=== PATIENT | female | born 1965 | race African-American/Black ===

== ENCOUNTER 2016-07-29 21:27 | Emergency (ER) | payer MEDICAID ==
[2014-08-05 06:02] VITALS: BMI 39.1
[~2016-07-29 21:27] MED LIST: BIOTIN5 MG PO; CARTIA XT240 MG PO; CRANBERRY475 MG PO; CRESTOR20 MG PO; CYCLOBENZAPRINE10 MG PO; DULERA 100 MCG8.8 GM INH; DYAZIDE 37.5/251 CAP PO; HYDROCODONE-APA1 TAB PO; IPRAT-ALBUT 0.5-3 ML UPD; PRILOSEC20 MG PO; PROMETHAZINE V120 M1 PO; SINGULAIR10 MG PO; ULTRACET TABLET1 TAB PO; VENTOLIN HFA18 GM INH; VITAMIN B-121000 MCG PO; VITAMIN D5000 UNIT PO
[2016-07-30 03:05] LABS: BASOPHILS 0.2 % (0.0-2.0); EOSINOPHILS 1.1 % (0-7); HEMOGLOBIN 14.6 g/dL (12-16); IMMATURE GRANULOCYTES 0.6 % (0-5); MCH 30.9 pg (26.0-34.0); MCV 90.9 fL (80.0-100.0); MEAN PLATELET VOLUME 9.3 fL (7.4-10.4); MONOCYTES 2.2 % (2-11); NEUTROPHILS 87.9 % (40-80); RBC 4.73 10x6/uL (4.00-5.40); WBC 13.7 10x3/uL (4.8-10.8)
[2016-07-30 03:06] LABS: PLATELET COUNT 373 10x3/uL (130-400)
[2016-07-30 03:27] LABS: CALC OSMOLALITY 275 mosm/kg (275-300); CALCIUM 9.6 mg/dL (8.5-10.1); CARBON DIOXIDE 24.8 mmol/L (21.0-32.0); CHLORIDE - SERUM 102 mmol/L (98-107); CREATININE - SERUM 0.8 mg/dL (0.6-1.3); PRO BNP 15 pg/mL (0-125); SODIUM 136 mmol/L (136-145); UREA NITROGEN 10 mg/dL (7-18); eGFR NON AFRICAN AMERICAN 80 mL/min (90-120)
[2016-07-30 03:38] LABS: GLUCOSE 184 mg/dL (74-106)
== END 2016-07-30 04:59 | disposition home or self-care (01) ==
LOC: D.ER 21:27
PROVIDERS: Family Medicine
DX: J18.9 Pneumonia, unspecified organism (principal); J45.909 Unspecified asthma, uncomplicated; R73.03 Prediabetes; I25.10 Atherosclerotic heart disease of native coronary artery without angina pectoris; I10 Essential (primary) hypertension; F17.200 Nicotine dependence, unspecified, uncomplicated

== ENCOUNTER → 2016-09-21 13:24 | Outpatient (CLI) | payer MEDICAID ==
[2014-08-05 06:02] VITALS: BMI 39.1
== END | disposition home or self-care (01) ==
LOC: D.CT 13:24
DX: R04.2 Hemoptysis (principal)

== ENCOUNTER → 2016-11-25 12:36 | Outpatient (CLI) | payer MEDICAID ==
[2014-08-05 06:02] VITALS: BMI 39.1
== END | disposition home or self-care (01) ==
LOC: D.US 12:36
DX: R22.41 Localized swelling, mass and lump, right lower limb (principal)

== ENCOUNTER → 2016-12-27 10:06 | Outpatient (CLI) | payer MEDICAID ==
[~2016-12-27] VITALS: Ht 152.4 cm; Wt 106.1 kg
[2016-12-27 12:31] VITALS: Ht 152.4 cm; Wt 106.1 kg
== END | disposition home or self-care (01) ==
LOC: D.FANS 11-30 10:30
DX: E11.9 Type 2 diabetes mellitus without complications (principal); I10 Essential (primary) hypertension; J44.9 Chronic obstructive pulmonary disease, unspecified

== ENCOUNTER 2017-03-18 10:16 | Inpatient (IN) | payer MEDICAID ==
[~2017-03-18] VITALS: Ht 152.4 cm; Wt 110.7 kg
[2017-03-18 11:26] LABS: BASOPHILS 0.2 % (0-2); EOSINOPHILS 3.3 % (0-7); HEMATOCRIT 44.5 % (36.0-48.0); HEMOGLOBIN 14.8 g/dL (12-16); IMMATURE GRANULOCYTES 0.6 % (0-5); LYMPHOCYTES 14.6 % (15-50); MCH 30.9 pg (26.0-34.0); MCHC 33.3 g/dL (31.0-37.0); MCV 92.9 fL (80.0-100.0); MONOCYTES 8.5 % (2-11); NEUTROPHILS 72.8 % (40-80); PLATELET COUNT 296 10x3/uL (130-400); RBC 4.79 10x6/uL (4.00-5.40); RDW 13.9 % (11.5-14.5); WBC 18.4 10x3/uL (4.8-10.8)
[2017-03-18 11:38] LABS: ALBUMIN 3.9 g/dL (3.4-5.0); ALKALINE PHOSPHATASE 103 U/L (46-116); ALT (SGPT) 48 U/L (10-68); CALC OSMOLALITY 278 mosm/kg (275-300); CALCIUM 9.6 mg/dL (8.5-10.1); CARBON DIOXIDE 27.1 mmol/L (21.0-32.0); CHLORIDE - SERUM 103 mmol/L (98-107); CREATININE - SERUM 0.9 mg/dL (0.6-1.3); POTASSIUM - SERUM 3.7 mmol/L (3.5-5.1); PROTEIN - SERUM 8.1 g/dL (6.4-8.2); SODIUM 140 mmol/L (136-145); UREA NITROGEN 10 mg/dL (7-18); eGFR NON AFRICAN AMERICAN 70 mL/min (90-120)
[2017-03-18 11:42] LABS: GLUCOSE 121 mg/dL (74-106)
[2017-03-18 11:48] LABS: PRO BNP 6 pg/mL (0-125); TROPONIN-I < 0.017 ng/mL (0.000-0.060)
[2017-03-18] MEDS ORDERED: CARTIA XT300 MG PO (17:22)
[2017-03-18] MEDS ORDERED: FEXOFENADINE H180 MG PO (17:30)
[2017-03-18] MEDS ORDERED: ADVAIR 500/501 DISK INH (17:30)
--- NOTE | 2017-03-18 17:30 | NUR ---
PT RECEIVED TO ROOM FROM ER. PT IS SHORT OF BREATH, O2 SAT IS 92. ONCE PT SAT IN BED, RR WERE EVEN AND UNLABORED. PT REPORTS PAIN IN CHEST AND BACK FROM COUGHING. FAMILY AT BEDSIDE, PT ORIENTED TO ROOM. ASSESSMENT, HX, AND MED REC COMPLETED. BP IS ELEVATED, HX OF HTN REPORTED. PTS HR IS 121, REGULAR. DENIES FURTHER NEEDS AT THIS TIME, CURRENTLY EATING DINNER. WILL CTM.
[2017-03-18] MEDS ORDERED: BENZONATATE200 MG PO (17:31)
[2017-03-18] MEDS ORDERED: NEURONTIN 300300 MG PO (17:32)
[2017-03-18] MEDS ORDERED: IPRAT-ALBUT 0.5-3 ML UPD (17:34)
[2017-03-18] MEDS ORDERED: ZESTORETIC 20/21 TAB PO (17:34)
[2017-03-18] MEDS ORDERED: METFORMIN HCL500 M1 PO (17:35)
[2017-03-18] MEDS ORDERED: ANAPROX DS550 MG PO (17:37)
[2017-03-18] MEDS ORDERED: PROAIR HFA8.5 GM INH (17:38)
[2017-03-18] MEDS ORDERED: VOLTAREN100 GM TOPICAL (17:41)
[2017-03-18] MEDS ORDERED: PULMICORT0.5 MG/21 INH (17:45)
[2017-03-18 17:46] VITALS: BP 150/103; BMI 44.6
--- NOTE | 2017-03-18 18:35 | NUR ---
PT RESTING QUILETY, RESPIRATIONS ARE EVEN AND UNLABORED, PT IS STILL MILDLY SHORT OF BREATH. WILL GIVE REPORT ON PT CONDTION FOR THE DAY.
[2017-03-18 20:00] VITALS: BP 154/99
--- NOTE | 2017-03-18 22:04 | NUR ---
PT COMPLAINS OF LOWER BACK PAIN AND REQUESTING NAPROXYN OR FLEXERIL. NOTIFIED DR. Genevieve MENDEZ WITH NEW ORDERS TO RESTART NAPROXYN, FLEXERIL AND NORCO. ALSO. DIAMANTE DE JESUS D/T FREQUENT PRODUCTIVE COUGH.
[2017-03-19] VITALS (7 sets, daily range): BP systolic 123–160; BP diastolic 71–99
--- NOTE | 2017-03-19 03:27 | NUR ---
RECIEVED UP IN BED WITH TV ON AND FAMILY AT BEDSIDE. ALERT AND ORIENTED X4. DENIES ANY PAIN AT THIS TIME. CALL LIGHT AND OVERBED TABLE IN REACH.
[2017-03-19 05:26] LABS: BASOPHILS 0.1 % (0-2); EOSINOPHILS 0 % (0-7); HEMATOCRIT 45.7 % (36.0-48.0); HEMOGLOBIN 15.3 g/dL (12-16); IMMATURE GRANULOCYTES 0.5 % (0-5); LYMPHOCYTES 6.3 % (15-50); MCHC 33.5 g/dL (31.0-37.0); MCV 92.5 fL (80.0-100.0); MEAN PLATELET VOLUME 9.7 fL (7.4-10.4); MONOCYTES 3.3 % (2-11); NEUTROPHILS 89.8 % (40-80); PLATELET COUNT 386 10x3/uL (130-400); RBC 4.94 10x6/uL (4.00-5.40); RDW 14.2 % (11.5-14.5); WBC 27.1 10x3/uL (4.8-10.8)
[2017-03-19 05:38] LABS: ANION GAP 14.7 mmol/L (8-16); CALCIUM 10.4 mg/dL (8.5-10.1); CARBON DIOXIDE 28.4 mmol/L (21.0-32.0); POTASSIUM - SERUM 4.1 mmol/L (3.5-5.1)
--- NOTE | 2017-03-19 07:28 | NUR ---
AM ROUNDING- RECEIVED REPORT FROM NIGHT SHIT NURSE BEBETO. PT IS CURRENTLY SITTING UP IN BED WITH EYES OPEN RESTING. GUEST IS AT BEDSIDE. ON 02 AT 2L VIA NC. ON MONITOR SHOWING SR, HR 100. IV SEEN TO LEFT HAND THAT IS CURRENTLY SALINE LOCKED. NO NEED AT THIS TIME. WILL CONTINUE TO MONITOR AND CONTINUE WITH PLAN OF CARE.
--- NOTE | 2017-03-19 09:09 | NUR ---
PT TO XRAY VIA WHEELCHAIR.
--- NOTE | 2017-03-19 16:34 | NUR ---
PT IS SITTING UP IN BED EATING MCDONALDS. FAMILY MEMBERS ARE AT BEDSIDE. DR. GOODRICH IS IN ROOM NOW. NO NEED AT THIS TIME. WILL CONTINUE TO MONITOR.
--- NOTE | 2017-03-19 17:50 | NUR ---
PT IS CURRENTLY SITTING UP IN BED WITH EYES OPEN RESTING. PT DENIES ANY NEED AT THIS CURRENT TIME. WILL CONTINUE TO MONITOR.
[2017-03-20 03:41] VITALS: BP 117/77
[2017-03-20 05:12] LABS: HEMATOCRIT 41.7 % (36.0-48.0); HEMOGLOBIN 13.6 g/dL (12-16); MCH 30.9 pg (26.0-34.0); MCHC 32.6 g/dL (31.0-37.0); MCV 94.8 fL (80.0-100.0); MEAN PLATELET VOLUME 9.7 fL (7.4-10.4); PLATELET COUNT 326 10x3/uL (130-400); RDW 14.7 % (11.5-14.5); WBC 27.7 10x3/uL (4.8-10.8)
[2017-03-20 05:18] LABS: ANION GAP 14.5 mmol/L (8-16); CALCIUM 9.6 mg/dL (8.5-10.1); CARBON DIOXIDE 25.7 mmol/L (21.0-32.0); POTASSIUM - SERUM 4.2 mmol/L (3.5-5.1)
--- NOTE | 2017-03-20 07:20 | NUR ---
MORNING ROUNDS MADE. PATIENT RESTING IN BED WITH NO REQUESTS AT THIS TIME. CPOC.
[2017-03-20 07:47] LABS: ANISOCYTOSIS OCC; HYPOCHROMASIA OCC; LYMPHOCYTES 11 % (15-50); MONOCYTES 11 % (2-11); NEUTROPHILS 74 % (40-80); PLATELET ESTIMATE NORMAL
[2017-03-20 08:09] VITALS: BP 122/78
--- NOTE | 2017-03-20 08:35 | NUR ---
PATIENT SITTING UP IN BED. MORNING MEDS GIVEN WITHOUT PROBLEMS. PATIENT ASKED ABOUT HER GABAPENTIN. ADVISED I WILL CALL DR. MENDEZ AND SEE ABOUT GETTING THAT STARTED. PATIENT VOICED UNDERSTANDING. C/O THE O2 DRYING OUT HER NOSE AND THROAT. ADDED NS TO WALL O2. CPOC.
--- NOTE | 2017-03-20 09:45 | NUR ---
PATIENT ASKED IF SHE COULD HAVE HER GABAPENTIN. SPOKE WITH NICK AT DR. MENDEZ'S OFFICE AND SHE STATED SHE WILL RUN IT BY DR. MENDEZ AND CALL ME BACK.
--- NOTE | 2017-03-20 10:15 | NUR ---
NICK FROM DR. MENDEZ'S OFFICE CALLED BACK, STATES TO CONTINUE GABAPENTIN 300MG TID. WILL START NOW.
[2017-03-20 11:46] VITALS: BP 124/76
--- NOTE | 2017-03-20 11:48 | NUR ---
PATIENT RESTING IN BED. NO REQUESTS AT THIS TIME. CPOC.
--- NOTE | 2017-03-20 13:23 | NUR ---
PATIENT LAYING IN BED WITH EYES CLOSED, CHEST RISES AND FALLS EQUALLY BILAT. NAD AT THIS TIME. WILL CONTINUE TO MONITOR. CPOC.
[2017-03-20 13:46] VITALS: Ht 152.4 cm; Wt 110.7 kg
--- NOTE | 2017-03-20 14:59 | NUR ---
PATIENT SITTING UP IN BED WITH FRIEND AT BEDSIDE. MEDS GIVEN. NO REQUESTS AT THIS TIME. CPOC.
--- NOTE | 2017-03-20 15:43 | NUR ---
PATIENT RESTING IN BED, DENIES ANY NEEDS AT THIS TIME. CPOC
[2017-03-20 16:51] VITALS: BP 106/63
--- NOTE | 2017-03-20 17:06 | NUR ---
PATIENT SITTING IN BED. NO REQUESTS AT THIS TIME. CPOC.
--- NOTE | 2017-03-20 18:07 | NUR ---
PATIENT SITTING IN BED WITH FAMILY AT BEDSIDE. URINE SAMPLE GIVEN. NO REQUESTS AT THIS TIME. CPOC.
--- NOTE | 2017-03-20 18:30 | NUR ---
END OF SHIFT ROUNDS MADE. ADVISED PATIENT I WILL BE LEAVING SOON. DENIES ANY NEEDS AT THIS TIME. SHE IS SITTING IN THE CHAIR AT BEDSIDE WITH HER FAMILY IN THE ROOM. CPOC.
[2017-03-20 20:30] VITALS: BP 119/69
[2017-03-20 23:50] VITALS: BP 107/73
--- NOTE | 2017-03-21 00:15 | NUR ---
ROUNDING ON PT'S MADE. NO NEEDS VOICED. DENIES ANY CURRENT C/O PAIN. CERTIFIED GENETIC COUNSELOR IN ROOM TO DO VS. CALL LIGHT WITHIN REACH. NURSE STATES NO CHANGES NOTED SINCE INITIAL ASSESSMENTS. WILL CONT TO MONITOR.
--- NOTE | 2017-03-21 04:36 | NUR ---
PATIENT NEEDS A RESPIRATORY CULTURE, UNABLE TO OBTAIN DUE TO NON PRODUCTIVE COUGH. WILL PASS TO NEXT SHIFT TO SEE IF THEY ARE ABLE TO OBTAIN.
[2017-03-21 05:10] VITALS: BP 115/70
[2017-03-21 05:32] LABS: BASOPHILS 0.1 % (0-2); EOSINOPHILS 0 % (0-7); HEMATOCRIT 41.5 % (36.0-48.0); HEMOGLOBIN 13.6 g/dL (12-16); IMMATURE GRANULOCYTES 2.1 % (0-5); LYMPHOCYTES 8.8 % (15-50); MCH 30.7 pg (26.0-34.0); MCHC 32.8 g/dL (31.0-37.0); MCV 93.7 fL (80.0-100.0); MEAN PLATELET VOLUME 9.7 fL (7.4-10.4); MONOCYTES 5.4 % (2-11); NEUTROPHILS 83.6 % (40-80); PLATELET COUNT 333 10x3/uL (130-400); RBC 4.43 10x6/uL (4.00-5.40); RDW 14.5 % (11.5-14.5); WBC 21.7 10x3/uL (4.8-10.8)
[2017-03-21 05:39] LABS: ANION GAP 15.2 mmol/L (8-16); CALCIUM 9.9 mg/dL (8.5-10.1); CARBON DIOXIDE 25.8 mmol/L (21.0-32.0); CREATININE - SERUM 1.1 mg/dL (0.6-1.3)
--- NOTE | 2017-03-21 07:42 | NUR ---
AM ROUNDS - PT IS AWAKE AND IN THE BED AT THIS TIME. PER CERAMIC TILER, MONITOR SHOWING SR, HR 99. PT IS UP AD HANNY. O2 AT 2.5L VIA NC. IV TO LEFT HAND, SL. A&O. BED AT LOWEST POSITION. CALL INMAN IN USE/REACH. SIDE RAILS UP X2. WILL CONTINEU TO MONITOR
[2017-03-21 08:11] VITALS: BP 123/73
[2017-03-21 10:19] LABS: ANA REFLEX - DIRECT Negative (Negative); IMMUNOGLOBULIN A 203 mg/dL (87-352); IMMUNOGLOBULIN G 1223 mg/dL (700-1600)
[2017-03-21 11:19] LABS: IMMUNOGLOBULIN E 187 IU/mL (0-100)
[2017-03-21 11:57] VITALS: BP 110/66
--- NOTE | 2017-03-21 12:55 | NUR ---
Patient Name: PRATIK Temple Admission Status: ER Accout number: [id number] Admission Date: 03-18-2017 : 1965 Admission Diagnosis: Attending: Dmitriy Mendez Current LOS: 3 Anticipated DC Date: Planned Disposition: Home Primary Insurance: [place] [employer]IONS ELIAN[place] Discharge Planning Comments: * Is the patient Alert and Oriented? Yes 0 * How many steps to enter\exit or inside your home? NONE 0 * PCP DR. MENDEZ 0 * Pharmacy [facility] * Preadmission Environment Home with Family 0 * ADLs Independent 0 * Equipment CPAP Glucometer Nebulizer 0 * Other Equipment [facility] - MEDICAL EQUIPMENT PROVIDER 0 * List name and contact numbers for known caregivers / representatives who currently or will assist patient after discharge: LIZ , DTR, 0 * Community resources currently utilized None 0 * Please name any agencies selected above. NONE 0 * Additional services required to return to the preadmission environment? No 0 * Can the patient safely return to the preadmission environment? Yes 0 * Has this patient been hospitalized within the prior 30 days at any hospital? No 0 CM MET WITH PT IN ROOM TO DISCUSS DISCHARGE PLANNING AND NEEDS. PT REPORTS LIVING AT HOME INDEPENDENTLY; PT'S ADULT DAUGHTER LIVES IN THE HOME. PT HAS CPAP, GLUCOMETER AND NEBULIZER FROM [facility]. PT HAS NO OUTSIDE SERVICES ASSISTING IN THE HOME. CM DISCUSSED AVAILABILITY OF HOME HEALTH, REHAB SERVICES AND MEDICAL EQUIPMENT. PT DENIES DISCHARGE NEEDS AT THIS TIME, REPORTS HER DAUGHTER WILL PICK HER UP FOR DISCHARGE HOME. PT PLANS TO DISCHARGE HOME WITH DAUGHTER, DENIES DISCHARGE NEEDS AT THIS TIME. CM TO FOLLOW AND ASSIST IF NEEDED. Garage Supervisor: Sunny Booth
[2017-03-21 16:13] VITALS: BP 110/59
--- NOTE | 2017-03-21 17:25 | NUR ---
PT IN BED WITH NO NEEDS AT THIS TIME. WILL CONTINUE TO MONITOR
--- NOTE | 2017-03-21 20:19 | NUR ---
PT SITTING ON SIDE OF BED. DAUGHTER AT BEDSIDE. DENIES NEEDS AT THIS TIME.
[2017-03-21 20:55] VITALS: BP 135/69
[2017-03-22 00:45] VITALS: BP 108/63
--- NOTE | 2017-03-22 04:44 | NUR ---
RESTING IN BED WITH EYES CLOSED AT THIS TIME. NO S/S OF DISTRESS OBSERVED. O2 @ 2.5 LITERS PER N/C. IV TO LEFT HAND SALINE LOCKED. DRESSING CLEAN, DRY AND INTACT. CALL LIGHT AND OVERBED TABLE IN RECH.
[2017-03-22 04:55] LABS: BASOPHILS 0 % (0-2); EOSINOPHILS 0 % (0-7); HEMATOCRIT 41.5 % (36.0-48.0); HEMOGLOBIN 13.5 g/dL (12-16); IMMATURE GRANULOCYTES 2.7 % (0-5); MCH 30.5 pg (26.0-34.0); MCHC 32.5 g/dL (31.0-37.0); MCV 93.9 fL (80.0-100.0); MEAN PLATELET VOLUME 9.3 fL (7.4-10.4); MONOCYTES 5.8 % (2-11); NEUTROPHILS 80.5 % (40-80); PLATELET COUNT 394 10x3/uL (130-400); RBC 4.42 10x6/uL (4.00-5.40); RDW 14.4 % (11.5-14.5)
[2017-03-22 05:07] LABS: ANION GAP 12.3 mmol/L (8-16); CALCIUM 9.6 mg/dL (8.5-10.1); CARBON DIOXIDE 27.9 mmol/L (21.0-32.0); CREATININE - SERUM 1.2 mg/dL (0.6-1.3); POTASSIUM - SERUM 4.2 mmol/L (3.5-5.1)
[2017-03-22 06:12] VITALS: BP 116/80
[2017-03-22 06:14] LABS: ANGIOTENSIN CONVERTING ENZYME < 15 U/L (14-82)
[2017-03-22 07:47] VITALS: BP 133/78
--- NOTE | 2017-03-22 08:32 | NUR ---
AM ROUNDS - PT IS SITTING ON THE SIDE OF THE BED AT THIS TIME. MONITOR SHOWING SR, HR 95. IV TO LEFT HAND, SL. PT IS A&O. O2 AT 2.5L VIA NC. PT IS UP AD HANNY. BED AT LOWEST POSITION. CALL INMAN IN USE/REACH. SIDE RAILS UP X2. NO NEEDS AT THIS TIME. WILL CONTINUE TO MONITOR
[2017-03-22 11:48] VITALS: BP 151/67
[2017-03-22 16:09] VITALS: BP 122/66
[2017-03-22 16:14] LABS: ANCA - ANTIMYELOPEROXIDASE <9.0 U/mL (0.0-9.0); ANCA - ANTIPROTEINASE 3 <3.5 U/mL (0.0-3.5); ANCA - ATYPICAL <1:20 titer (Neg:<1:20); ANCA - CYTOPLASMIC <1:20 titer (Neg:<1:20); ANCA - PERINUCLEAR <1:20 titer (Neg:<1:20)
--- NOTE | 2017-03-22 16:29 | NUR ---
VANCOMYCIN TROUGH = 8.3 INCREASED DOSE TO 1.25 GRAM Q12H
--- NOTE | 2017-03-22 18:25 | NUR ---
PT IN BED WITH NO NEEDS AT THIS TIME. WILL CONTINUE TO MONITOR
[2017-03-22 21:08] LABS: CYCLIC CITRULL PEPTIDE IGG/IGA 3 units (0-19)
[2017-03-22 21:12] VITALS: BP 114/63
[2017-03-23 00:52] VITALS: BP 92/53
[2017-03-23 03:11] LABS: MYCOPLASMA PNEUMO IGG 122 U/mL (0-99)
[2017-03-23 04:31] LABS: BASOPHILS 0.2 % (0-2); EOSINOPHILS 0 % (0-7); HEMATOCRIT 40.4 % (36.0-48.0); HEMOGLOBIN 13.4 g/dL (12-16); IMMATURE GRANULOCYTES 4.9 % (0-5); LYMPHOCYTES 10.4 % (15-50); MCH 30.9 pg (26.0-34.0); MCHC 33.2 g/dL (31.0-37.0); MCV 93.3 fL (80.0-100.0); MEAN PLATELET VOLUME 8.9 fL (7.4-10.4); MONOCYTES 5.6 % (2-11); NEUTROPHILS 78.9 % (40-80); PLATELET COUNT 373 10x3/uL (130-400); RBC 4.33 10x6/uL (4.00-5.40); RDW 14.2 % (11.5-14.5)
--- NOTE | 2017-03-23 05:03 | NUR ---
PATIENT UNABLE TO PRODUCE ENOUGH SPUTUM TO COLLECT RESPIRATORY CULTURE.
--- NOTE | 2017-03-23 05:23 | NUR ---
ELDER COUNSELOR AT BEDSIDE TO OBTAIN VITALS, CALL LIGHT IN REACH. WILL CONTINUE WITH PLAN OF CARE.
[2017-03-23 05:28] LABS: ANION GAP 14.5 mmol/L (8-16); CALCIUM 9.1 mg/dL (8.5-10.1); CARBON DIOXIDE 24.9 mmol/L (21.0-32.0); CREATININE - SERUM 1.2 mg/dL (0.6-1.3); POTASSIUM - SERUM 4.4 mmol/L (3.5-5.1)
[2017-03-23 05:53] VITALS: BP 120/75
--- NOTE | 2017-03-23 07:30 | NUR ---
REPORT RECEIVED. PT RESTING QUIETLY, RR EVEN AND UNLABORED. PT IS ALERT AND ORIENTED X4. DENIES NEEDS AT THIS TIME. WILL CTM.
[2017-03-23 08:00] VITALS: BP 126/76
[2017-03-23 13:20] VITALS: BP 136/76
--- NOTE | 2017-03-23 16:00 | NUR ---
PT REPORTS NOT HAVING BM SINCE MONDAY. PT HAS PRN MEDICAITON ORDERED FOR 0600. EXPLAINED TO PT THAT IT WAS FOR THE MORNING AND I WILL TELL COMMISSION ASSOCIATE IN REPORT TO GIVE THE MEDICATION TO HER TOMORROW MORNING.
[2017-03-23 16:47] VITALS: BP 118/67
--- NOTE | 2017-03-23 18:30 | NUR ---
PT RESTING QUILETY, RR EVEN AND UNLABORED. DENIES NEEDS AT THIS TIME. WILL GIVE REPORT ON PT CONDTITION FOR THE DAY,
--- NOTE | 2017-03-23 19:00 | NUR ---
REPORT RECIEVED, WILL ASSESS AND MONITOR PT.
--- NOTE | 2017-03-23 20:10 | NUR ---
SHIFT ASSESSMENT COMPLETE, PLEASE SEE FLOW SHEETS FOR FULL DETAILS. DENIES PAIN/NEEDS ATT. RR EVEN AND UNLABORED, LUNGS CLEAR IN UPPER LOBES AND DIMINISHED IN LOWER LOBES. S1S2 HEARD AND NSR NOTED ON CM AT 87, PPP, CAOP REFIL <3 SECONDS. BS ACTIVE X4, STATES MAY NEED HER LINZESS IN AM FOR BM ASD HAD NOT HAD ONE IN A FEW DAYS WHICH IS NORMAL FOR HER. GETS UP AD.HANNY. TO RR AND FOR EXERCISE DURING THE DAY. BED LOW AND LOCKED, CALL LIGHT IN REACH. WILL CPOC.
[2017-03-23 20:35] VITALS: BP 148/74
[2017-03-24 00:50] VITALS: BP 124/69
--- NOTE | 2017-03-24 03:17 | NUR ---
resting, no s&s acute distress noted. bed low and locked, call light in reach. will cpoc.
[2017-03-24 05:12] VITALS: BP 146/89
[2017-03-24 06:22] LABS: BASOPHILS 0.2 % (0-2); EOSINOPHILS 0 % (0-7); HEMATOCRIT 41.5 % (36.0-48.0); HEMOGLOBIN 13.6 g/dL (12-16); IMMATURE GRANULOCYTES 6.7 % (0-5); LYMPHOCYTES 8.3 % (15-50); MCH 30.5 pg (26.0-34.0); MCHC 32.8 g/dL (31.0-37.0); MEAN PLATELET VOLUME 9.2 fL (7.4-10.4); MONOCYTES 7.9 % (2-11); NEUTROPHILS 76.9 % (40-80); PLATELET COUNT 388 10x3/uL (130-400); RBC 4.46 10x6/uL (4.00-5.40); RDW 14.2 % (11.5-14.5); WBC 25.3 10x3/uL (4.8-10.8)
[2017-03-24 06:49] LABS: ANION GAP 14.3 mmol/L (8-16); CALCIUM 9.7 mg/dL (8.5-10.1); CREATININE - SERUM 1.1 mg/dL (0.6-1.3); POTASSIUM - SERUM 4.3 mmol/L (3.5-5.1)
--- NOTE | 2017-03-24 07:51 | NUR ---
INTRODUCED SELF TO PT. PT RESTING IN BED, DENIES NEEDS. WCTM.
[2017-03-24] MEDS ORDERED: ZITHROMAX250 MG PO (08:47)
[2017-03-24] MEDS ORDERED: PREDNISONE10 MG PO (08:52)
[2017-03-24] MEDS ORDERED: OMNICEF300 MG PO (08:54)
--- NOTE | 2017-03-24 11:20 | NUR ---
PT DISCHARGE INSTRUCTIONS AND NEW MEDICATIONS REV'D. PT ESCORTED OUT VIA WHEELCHAIR WITH FAMILY. SEATBELT IN PLACE.
--- NOTE | 2017-05-16 07:19 | DS ---
PATIENT:PRATIK :[birth year] MEDICAL RECORD: [id number] DISCHARGE SUMMARY ADMISSION DATE: 03/18/17 DISCHARGE DATE: 03/24/17 DATE OF ADMISSION: 03/18/2017 DATE OF DISCHARGE: 03/24/2017 CONDITION ON DISCHARGE: Improved. ADMITTING DIAGNOSES: Asthma exacerbation, acute bronchitis. DISCHARGE DIAGNOSES: Unspecified pneumonia secondary to gram-negative bacteria, asthma exacerbation, COPD, obesity, hypertension, hyperlipidemia, vitamin D deficiency, irritable bowel syndrome, gastroesophageal reflux. HOSPITAL COURSE: The patient is a 52-year-old female who has history of having asthma/COPD, getting progressively worse with shortness of breath and wheezing. She is admitted for exacerbation through the Emergency Room. PHYSICAL EXAMINATION: VITAL SIGNS: The patient's temperature was 98.1, her pulse was 121, respirations 18, blood pressure was elevated at 150/102, and O2 sat was 92% on 2 liters. HEENT: Unremarkable. NECK: Supple. There was no adenopathy. HEART: Regular rate and rhythm without murmurs, gallops, or rubs. LUNGS: She had expiratory wheezes bilaterally. It was felt the patient should be admitted. She was admitted, placed on IV Solu-Medrol and IV azithromycin as well as antitussive. Pulmonary consultation was obtained. She was seen in consultation by Dr. Pablo King. Dr. King recommended that the patient have coverage for gram-negative rods and strep pneumonia times 7-10 days. Appropriate antibiotics were given. The patient was placed on Maxipime as well as Zithromax and added to vancomycin. She had chest x-ray initially showing findings suggestive of mild congestive failure. On the , left basilar disease and trace effusion were noted. CT scan of the chest was performed on . CT of chest revealed interval progression and patchy areas of ground glass opacity in both lungs; however, low prominence along with patchy areas of air trapping and slight bronchiectasis in the upper lungs. Findings are nonspecific, could be secondary to infectious versus inflammatory bronchiolitis pneumonitis or possible interstitial lung disease. The patient's condition continued to improve. She had been on IV steroids. On the day of her discharge, her white count was elevated at 25,300. It was felt to be secondary to her IV Solu-Medrol. Her hemoglobin was 13.6, hematocrit was 41.5, and her platelets were 382. Sodium 139, potassium 4.3, chloride 104, CO2 of 25, BUN 24, creatinine 1.1, blood sugar was elevated at 195. The patient's vital signs were normal. It was felt the patient could be discharged. She was discharged on prednisone 10 mg daily; cefdinir 300 mg p.o. q. 12 hours, total of 10 days; also azithromycin 500 mg once a day for 5 days. She would continue on Singulair 10 mg once a day, Crestor 20 mg once a day, hydrocodone 10/325 one every 4 hours p.r.n. severe pain. She was also on Phenergan VC with Codeine syrup one teaspoon q. 4 hours p.r.n. cough, Flexeril 10 mg p.o. q. 8 hours p.r.n. muscle spasm, Prilosec 20 mg once a day, vitamin D3 5000 international units once a day, diltiazem 300 mg daily, Advair 500/50 Diskus one puff b.i.d., Nita 180 DISCHARGE SUMMARY REPORT [id number] ,PRATIK LAZARO mg once a day, Tessalon Perles 200 mg one to two p.o. q. 8 hours p.r.n. cough., gabapentin 300 mg p.o. t.i.d., ipratropium/albuterol 3 mL q. 4 hours p.r.n. shortness of breath, Zestoretic 20/25 one p.o. daily, metformin 500 mg once daily, Naprosyn 500 mg q. 12 hours p.r.n. pain, ProAir two puffs q. 4 hours p.r.n. shortness of breath, and also Voltaren gel 2 grams apply q.i.d. DIET: The patient is to be on a 2200-calorie ADA diet. ACTIVITIES: Ad abhishek. FOLLOWUP: Follow up with Dr. Mcclain in the following week. TRANSINT:[id number] Voice Confirmation ID: [id number] DOCUMENT ID: [id number] SHUKRI TOVAR MD at 0719 CC: [id number] DICTATION DATE: 05/14/17 1352 FOUNDRY WORKER: 05/15/17 1327 DIS IN 03/24/17 [facility] [address] [place] [address]
== END 2017-03-24 11:21 | disposition home or self-care (01) | DRG 178 ==
LOC: D.ER 10:16 → D.M2 15:39
PROVIDERS: Emergency Medicine; Family Medicine; Internal Medicine Pulmonary Disease; ADMIT Family Medicine
DX: J15.6 Pneumonia due to other Gram-negative bacteria (principal); J45.901 Unspecified asthma with (acute) exacerbation; J44.0 Chronic obstructive pulmonary disease with (acute) lower respiratory infection; J44.1 Chronic obstructive pulmonary disease with (acute) exacerbation; Z68.41 Body mass index [BMI] 40.0-44.9, adult; J13 Pneumonia due to Streptococcus pneumoniae; J69.0 Pneumonitis due to inhalation of food and vomit; J20.9 Acute bronchitis, unspecified; E11.40 Type 2 diabetes mellitus with diabetic neuropathy, unspecified; I10 Essential (primary) hypertension; E66.9 Obesity, unspecified; E78.5 Hyperlipidemia, unspecified; E55.9 Vitamin D deficiency, unspecified; K58.9 Irritable bowel syndrome, unspecified; K21.9 Gastro-esophageal reflux disease without esophagitis

== ENCOUNTER 2017-06-19 07:37 | Outpatient (CLI) | payer MEDICAID ==
[2017-03-20 13:46] VITALS: BMI 44.4
[~2017-06-19 07:37] MED LIST changes: +ADVAIR 500/501 DISK INH; +ANAPROX DS550 MG PO; +BENZONATATE200 MG PO; +CARTIA XT300 MG PO; +FEXOFENADINE H180 MG PO; +METFORMIN HCL500 M1 PO; +NEURONTIN 300300 MG PO; +OMNICEF300 MG PO; +PREDNISONE10 MG PO; +PROAIR HFA8.5 GM INH; +PULMICORT0.5 MG/21 INH; +VOLTAREN100 GM TOPICAL; +ZESTORETIC 20/21 TAB PO; +ZITHROMAX250 MG PO
== END 2017-06-19 23:59 | disposition home or self-care (01) ==
LOC: D.MAMMO 07:37
DX: Z12.31 Encounter for screening mammogram for malignant neoplasm of breast (principal)

== ENCOUNTER → 2018-02-05 14:41 | Outpatient (CLI) | payer MEDICARE, MEDICAID ==
[2017-03-20 13:46] VITALS: BMI 44.4
== END | disposition home or self-care (01) ==
LOC: D.CT 14:41
DX: J01.90 Acute sinusitis, unspecified (principal)

== ENCOUNTER → 2018-08-31 07:49 | Outpatient (CLI) | payer MEDICARE, MEDICAID ==
[2017-03-20 13:46] VITALS: BMI 44.4
== END | disposition home or self-care (01) ==
LOC: D.CT 07:49
PROVIDERS: ATTEND Family Medicine
DX: J01.90 Acute sinusitis, unspecified (principal)

== ENCOUNTER 2019-02-12 08:00 | Outpatient (CLI) | payer MEDICARE, MEDICAID ==
[2017-03-20 13:46] VITALS: BMI 44.4
== END 2019-02-12 23:59 | disposition home or self-care (01) ==
LOC: D.MAMMO 08:00
PROVIDERS: ATTEND Family Medicine
DX: Z12.31 Encounter for screening mammogram for malignant neoplasm of breast (principal)

== ENCOUNTER 2020-08-19 13:50 | Outpatient (CLI) | payer MEDICARE, MEDICAID ==
[2017-03-20 13:46] VITALS: BMI 44.4
== END 2020-08-19 23:59 | disposition home or self-care (01) ==
LOC: D.MAMMO 13:50
PROVIDERS: ATTEND Family Medicine
DX: Z12.31 Encounter for screening mammogram for malignant neoplasm of breast (principal)